=== PATIENT | male | born 1960 | race Caucasian/White ===

== ENCOUNTER 2016-12-07 05:35 | Day surgery (SDC) | payer BC ==
[2016-12-05 13:01] LABS: HEMATOCRIT 44.2 % (42.0-54.0); HEMOGLOBIN 15.4 g/dL (13.5-17.5); MCHC 34.8 g/dL (31.0-37.0); MCV 91.7 fL (80.0-100.0); MEAN PLATELET VOLUME 10.4 fL (7.4-10.4); RBC 4.82 10x6/uL (4.20-6.10); RDW 12.3 % (11.5-14.5); WBC 10.3 10x3/uL (4.8-10.8)
[2016-12-05 13:30] LABS: CALC OSMOLALITY 279 mosm/kg (275-300); CALCIUM 9.5 mg/dL (8.5-10.1); CARBON DIOXIDE 29.5 mmol/L (21.0-32.0); CHLORIDE - SERUM 102 mmol/L (98-107); CREATININE - SERUM 0.7 mg/dL (0.6-1.3); GLUCOSE 101 mg/dL (74-106); POTASSIUM - SERUM 4.8 mmol/L (3.5-5.1); SODIUM 141 mmol/L (136-145); UREA NITROGEN 11 mg/dL (7-18); eGFR NON AFRICAN AMERICAN > 90 mL/min (90-120)
[~2016-12-07] VITALS: Ht 190.5 cm; Wt 113.9 kg
[~2016-12-07 05:35] MED LIST: COLAZAL750 MG PO; EXFORGE 10-3201 TAB PO; HYDROCHLOROTH12.5 M1 PO; PREVACID30 MG PO; ZOCOR20 MG PO
[2016-12-07 07:11] VITALS: BP 138/75; Ht 190.5 cm; Wt 113.9 kg
--- NOTE | 2016-12-07 08:34 | NUR ---
ALEIDA PAD LEFT THIGH 19-09LP EXP 06-22-19
--- NOTE | 2016-12-07 15:16 | NUR ---
1430--PT VOIDS, IV DC'D. SHEILA LEDESMA 1450--DISCHARGE INSTRUCTIONS GIVEN, PT VERBALIZES UNDERSTANDING. PT OFF UNIT VIA WC. SHEILA LEDESMA
--- NOTE | 2016-12-23 09:40 | OP ---
PATIENT NAME: ITZEL MCCORMACK MEDICAL RECORD: [id number] :58 LOCATION:D.FORMERLY [facility] ADMISSION DATE: SURGEON: MELINDA BRANCH MD DATE OF OPERATION: 12/07/2016 PREOPERATIVE DIAGNOSES: 1. Anorectal mass. 2. Ulcerative colitis. 3. Hematochezia. 4. Intractably symptomatic external hemorrhoids. POSTOPERATIVE DIAGNOSES: 1. Intractably symptomatic external hemorrhoids. 2. Anorectal mass, polypoid, likely an enlarged anal papilla. 3. Hlhgvncn-en-eitjrh ulcerative colitis. PROCEDURE: 1. Anal evaluation under anesthesia. 2. Procedure for prolapse and hemorrhoids. 3. Excision of anal mass. SURGEON: Melinda Branch MD RN INFORMATICS: None. BLOOD LOSS: Minimal. ANESTHESIA: General. COMPLICATIONS: None. The risks, possible complications and alternatives to procedure were explained to the patient. He elects to proceed. The discussion specifically included, but was not limited to, bleeding requiring an emergency reoperation, infection, intestinal injury, postoperative anal fissure, postoperative anal stenosis, and postoperative anal fistula. OPERATIVE COURSE: The patient was conveyed to the operating room on 12/07/2016. General anesthesia was induced by the anesthesia staff. The patient was placed in the lithotomy position with the buttocks taped laterally. U-shaped anal retractors were placed. There was an anorectal mass located at 7 o'clock and this appeared to be an enlarged anal papilla. This was removed by excising via electrocautery. The patient has intractably symptomatic external hemorrhoids and also has ulcerative colitis. I have been asked to biopsy the ulcerative colitis. I felt that we could accomplish both of these conditions by performing a procedure for prolapse and hemorrhoids, which will provide us with a generous biopsy. The PPH dilator retractor was placed. The retractor was sewn in place with circumferential 2-0 silks to the surrounding anoderm. A 2-0 Prolene mucosal pursestring suture was applied 1 cm cephalad to the clear retractor. A PPH stapling device was then placed with the anvil cephalad to the pursestring suture, which was then tightened and tied. I engaged the device for 2 minutes. It was held in place and then fired. It was then removed. There was an entire donut of rectal and internal hemorrhoidal tissue within the stapling device. OPERATIVE REPORT [id number] ITZEL MCCORMACK Bleeding along the anastomotic staple line was controlled with [id number] 3-0 Vicryls. Gelfoam was applied to the anus and lower rectum. I then infiltrate the perianal tissues with Marcaine anesthesia. A topical anesthetic cream was applied to the external hemorrhoids. The patient was then extubated and conveyed to post-anesthesia care unit where he was in stable condition. I will see him in the office in 2-3 weeks. TRANSINT:[id number] Voice Confirmation ID: [id number] DOCUMENT ID: [id number] CC: Kristi VivarhalDELONTE cronin. MELINDA BRANCH MD at 0940 CC: DR. KAREN ROBLERO and KATIE TOMLINSON MD [id number] DICTATION DATE: 12/07/16 1104 BUSINESS ECONOMIST: 12/07/16 1519 [facility] 12/07/16 [id number] [place] [address]
--- NOTE | 2016-12-23 09:40 | HP ---
PATIENT: ITZEL MCCORMACK MEDICAL RECORD: [id number] ACCOUNT: [id number] LOCATION:[facility] : 58 ADMISSION DATE: 12/07/16 HISTORY AND PHYSICAL EXAMINATION CHIEF COMPLAINT: Hematochezia. HOME MEDICATIONS: Allopurinol, amlodipine, valsartan, hydrochlorothiazide and steroid taper. ALLERGIES: No known drug allergies. PAST MEDICAL AND SURGICAL HISTORY: Gastroesophageal reflux, which is controlled on medications; gout, left knee ORIF, ulcerative colitis and hypertension. REVIEW OF SYSTEMS: Negative for diabetes or thyroid problems. Negative for renal disease or hepatitis. Negative for CVA or seizures. PHYSICAL EXAMINATION: GENERAL: The patient does not appear acutely ill. He does not appear chronically ill. VITAL SIGNS: Reviewed. HEAD: External ears appear normal. EYES: Extraocular movements are intact. NECK: Trachea is midline. CHEST: No intercostal retractions. PULMONARY: Nonlabored, no stridor. ABDOMEN: Nontender. IMPRESSION: 1. Ulcerative colitis. 2. Hematochezia, 3. Anal mass. PLAN: Anal evaluation under anesthesia, excision of anal mass, incisional biopsies of anus and a possible procedure for polyps and hemorrhoids. TRANSINT:[id number] Voice Confirmation ID: [id number] DOCUMENT ID: [id number] MELINDA BRANCH MD at 0940 CC: DR. KAREN ROBLERO and KATIE TOMLINSON MD [id number] DICTATION DATE: 12/07/16 0950 [employer] SALES AGENT: 12/07/16 1110 [facility] 12/07/16 [address] [place] [address]
== END 2016-12-07 14:50 | disposition home or self-care (01) ==
LOC: D.OPS 05:35 → D.PAN 08:00 → D.OPS 14:50
PROVIDERS: Anesthesiology
DX: K64.8 Other hemorrhoids (principal); K64.4 Residual hemorrhoidal skin tags; K51.90 Ulcerative colitis, unspecified, without complications; K21.9 Gastro-esophageal reflux disease without esophagitis; M10.9 Gout, unspecified; I10 Essential (primary) hypertension; Z79.52 Long term (current) use of systemic steroids; Z79.899 Other long term (current) drug therapy